=== PATIENT | male | born 1995 | race Caucasian/White ===

== ENCOUNTER 2022-12-14 10:58 | Emergency (ER) | payer OTHER ==
[~2022-12-14] VITALS: Ht 172.7 cm; Wt 79.4 kg
[2022-12-14] MEDS ORDERED: CYCLOBENZAPRINE 10 MG TABLET ONE (11:38)
[2022-12-14] MEDS ORDERED: IBUPROFEN 600 MG TABLET ONE (11:38)
[2022-12-14] MEDS ORDERED: CYCLOBENZAPRINE 10 MG TABLET PO ONE (12:00)
[2022-12-14] MEDS ORDERED: IBUPROFEN 600 MG TABLET PO ONE (12:00)
[2022-12-14] MEDS ORDERED: CYCL5TAB PO (13:46)
[2022-12-14] MEDS ORDERED: IBUP-1955 PO (13:46)
[2022-12-14 14:00] VITALS: BP 124/62; TEMP 98.1; O2SAT 96
== END 2022-12-14 14:00 | disposition home or self-care (01) ==
LOC: ER 11:08
DX: S20.212A Contusion of left front wall of thorax, initial encounter (principal); S80.811A Abrasion, right lower leg, initial encounter; W18.30XA Fall on same level, unspecified, initial encounter; Y93.89 Activity, other specified; Y92.89 Other specified places as the place of occurrence of the external cause; Y99.8 Other external cause status
CPT/HCPCS: 71100-TC

== ENCOUNTER 2024-06-14 10:19 | Emergency (ER) | payer OTHER ==
[~2024-06-14] VITALS: Ht 172.7 cm; Wt 81.6 kg
[~2024-06-14 10:19] MED LIST: CYCL5TAB PO; IBUP-1955 PO
[2024-06-14 10:22] VITALS: BP 118/72; TEMP 98.2; O2SAT 97
[2024-06-14] MEDS ORDERED: CYCLOBENZAPRINE 10 MG TABLET ONE (11:27)
[2024-06-14] MEDS ORDERED: LIDOCAINE 5% (PATCH) 1 EA PATCH TP ONE (11:27)
[2024-06-14] MEDS ORDERED: KETOROLAC TROMETHAMINE 15 MG/ML VIAL ONE (11:27)
[2024-06-14] MEDS: CYCLOBENZAPRINE 10 MG TABLET PO ONE (11:31)
[2024-06-14] MEDS: LIDOCAINE 5% (PATCH) 1 EA PATCH TP STA (11:31)
[2024-06-14] MEDS: KETOROLAC TROMETHAMINE 15 MG/ML VIAL IM ONE (11:32)
[2024-06-14] MEDS ORDERED: CYCL5TAB PO (12:23)
[2024-06-14] MEDS ORDERED: IBUP-1955 PO (12:23)
[2024-06-14] MEDS ORDERED: LIDO30AD10 TP (12:23)
== END 2024-06-14 12:34 | disposition home or self-care (01) ==
LOC: ER 10:23
DX: S39.012A Strain of muscle, fascia and tendon of lower back, initial encounter (principal); S40.012A Contusion of left shoulder, initial encounter; Z60.2 Problems related to living alone; W01.0XXA Fall on same level from slipping, tripping and stumbling without subsequent striking against object, initial encounter; Y93.89 Activity, other specified; Y92.89 Other specified places as the place of occurrence of the external cause; Y99.8 Other external cause status
CPT/HCPCS: 99284; 96372; 72100; 73030; J1885